=== PATIENT | male | born 1990 | race Two or more races ===

== ENCOUNTER 2025-07-26 00:29 | Emergency (ER) | payer BC, MEDICAID ==
[~2025-07-26] VITALS: Ht 177.8 cm; Wt 88.6 kg
[2025-07-26 00:37] VITALS: PULSE 69
--- NOTE | 2025-07-26 02:48 | Physician Documentation ---
HPI ~ General Chief Complaint: Tooth Problem Stated Complaint: DENTAL PAIN Time Seen by MD: 02:31 History of Present Illness HPI Comment 34-year-old male presenting with dental pain. He tells me that he has several bad teeth, but recently broke 1 of his right lower teeth. He reports significant pain. The pain is sharp and stabbing. He has started to have swelling and pain down into his jaw and neck area. He took extra-strength Tylenol without relief. He denies any significant difficulty swallowing. No difficulty breathing. No other acute concerns. No allergies to antibiotics Medication Reconciliation Allergies: Coded Allergies: No Known Allergies (Unverified , 05/03/18) Scheduled Amox Tr/Potassium Clavulanate (Augmentin 875-125 Tablet), 1 TAB PO Q12H Past Medical History Past Medical History: No Pertinent History Past Surgical History: noncontributory Alcohol Use: Rarely Drug Use: none Lives In: Home Occupation: employed Review of Systems Constitutional: Denies: fever ENT: Reports: mouth pain Physical Exam Vital Signs: Temperature: 97.8, Source: Temporal, Heart Rate: 69, Respiratory Rate: 17, BP: 147/112, Pulse Oximetry: 98, Weight: 88.600 Physical Exam General: This is an uncomfortable appearing young man, not in distress HEENT: Atraumatic, oropharynx is moist. Multiple teeth with caries, in the right lower jaw there is a broken tooth, with significant tenderness to palpation in this region. No significant gum swelling. He does have tenderness on palpation of the external jaw and cheek area. Neck: No stridor, no stiffness. He does have a tender lymph node in the right anterior chain Heart: Regular rate and rhythm, normal-appearing peripheral perfusion Lungs: normal work of breathing, normal oxygen saturation on room air Neuro: Alert and oriented Psychiatric: Calm and cooperative with exam Procedures Nerve Block Nerve Block Site: Inferior alveolar right-sided dental block Anesthetic Used: bupivacaine Volume Anesthetic (ccs): 2 Tolerated Procedure Well?: yes, no complications Procedure Note Good pain relief was obtained Progress Results/Orders Results/Orders Completed Orders - JUMA ALLEN MD Ketorolac Trometh 15mg/Ml Vial (Toradol (07/26/25 02:45) Amox Tr/Potassium Clavulanate (Augmentin (07/26/25 02:45) Medications Received in ER Medications (Trade) Dose Ordered Sig/Marita Route PRN Reason Start Time Stop Time Status Last Admin Dose Admin (Toradol injection) 15 mg ONCE ONCE IM 07/26/25 02:45 07/26/25 02:46 DC 07/26/25 03:01 15 MG (Augmentin 875-125mg tablet) 1 tab ONCE ONCE PO 07/26/25 02:45 07/26/25 02:46 DC 07/26/25 03:00 1 TAB Vital Signs 07/26/25 07/26/25 07/26/25 00:37 03:01 04:15 Temp 97.8 98.0 Pulse 69 Resp 17 18 65 B/P (MAP) 147/112 132/87 Pulse Ox 98 99 Medical Decision Making Additional information obtaine: N/A Findings na Differential Dx:Considerations: Include: Alveolar fracture, Alveolar osteitis, Facial Cellulitis, Periapical abscess, Tooth Fracture Additional Comment The patient presents with dental pain. On exam he has a broken tooth and signs of a dental infection. He was given IM Toradol and Augmentin. A dental block was performed with good pain control. He will be discharged with antibiotics and home care instructions Departure Time of Disposition: 04:13 Disposition: 01 HOME / SELF CARE / HOMELESS Impression: Primary Impression: Toothache Condition: Improved Discharge Instructions: Dental Pain Referrals: NO PRIMARY CARE PROVIDER (PCP) Prescriptions Amox Tr/Potassium Clavulanate (Augmentin 875-125 Tablet) 1 Each Tablet 1 TAB PO Q12H for 7 Days, #13 TAB Prov: JUMA ALLEN MD 07/26/25 Education Educated: Patient Educated regarding: diagnosis, treatment, need for follow up Signature Scribe Signature: [email or web address] Attestation: JUMA Hager MD Jul 26, 2025 02:48
[2025-07-26] MEDS: amox tr/potassium clavulanate 875/125mg TAB PO ONE (03:00)
[2025-07-26] MEDS: ketorolac trometh 15mg/ml vial 15 MG/ML ML IM ONE (03:01)
[2025-07-26] MEDS ORDERED: AMOX-117 PO (04:14)
[2025-07-26 04:15] VITALS: BP 132/87; RESP 65; TEMP 98; O2SAT 99
== END 2025-07-26 04:25 | disposition home or self-care (01) ==
LOC: ER 00:29
DX: K08.89 Other specified disorders of teeth and supporting structures (principal)
CPT/HCPCS: 64400; 96372; 99284; J1885